=== PATIENT | female | born 1995 | race Caucasian/White ===

== ENCOUNTER 2022-10-13 05:19 | Emergency (ER) | payer OTHER, SELFPAY ==
[2022-10-13 05:26] VITALS: BP 130/79; PULSE 64; RESP 18; TEMP 36.6; O2SAT 100
--- NOTE | 2022-10-13 05:45 | CRLHL7_ITS ---
For Patients: As a result of the Century Cures Act, medical imaging exams and procedure reports are released immediately into your electronic medical record. You may view this report before your referring provider. If you have questions, please contact your health care provider. INDICATION: Periumbilical pain. TECHNIQUE: CT abdomen and pelvis acquired with 62 cc Isovue 370 IV contrast. COMPARISON: None. FINDINGS: Lower chest: Unremarkable. Liver: Unremarkable. Normal in size and attenuation. No suspicious masses. Gallbladder and bile ducts: Unremarkable. No stones or inflammation. No biliary dilatation. Pancreas: Unremarkable. No mass or inflammation. Spleen: Unremarkable. Normal in size. No masses. Adrenal glands: Unremarkable. No nodules. Kidneys: Unremarkable. No suspicious masses, stones, or hydronephrosis. GI tract: Unremarkable. Normal in caliber. No sign of mass or inflammation. Normal appendix. Vasculature: Abdominal aorta is normal in caliber. Mesenteric arteries are patent. Lymph nodes: No lymphadenopathy. Peritoneum/Abdominal Wall: Unremarkable. No sign of mass or infiltration. No free air or significant free fluid. Pelvis: Unremarkable. Bones: Unremarkable for age. IMPRESSION: Unremarkable CT of the abdomen and pelvis. No findings to explain abdominal pain. Please note that all CT scans at this facility use dose modulation, iterative reconstruction, and/or weight-based dosing when appropriate to reduce radiation dose to as low as reasonably achievable. Dictated by Norberto Torrez MD @ 10/13/2022 7:30:52 AM (Electronically Signed)
--- NOTE | 2022-10-13 05:55 | ED_ITS ---
HPI - General Adult General Chief complaint: Abdominal Pain Stated complaint: abdomen pain Time Seen by Provider: 10/13/22 05:34 Source: patient Mode of arrival: ambulatory Limitations: no limitations History of Present Illness HPI narrative: Patient reporting abdominal pain for the past 3 days, significantly worsening at 12 30 this morning which is about 5 hours prior to arrival. It is accompanied by some mild nausea but no vomiting. Pain is located slightly inferior and to the left of the umbilicus, diffuse. Achy in nature. Patient thought she might be constipated and tried using a rectal suppository. With this, she was able to have a bowel movement but there was no improvement in her pain. Pain is constant but it is also worse with movement. There is no vaginal discharge, no new sexual partners. Her last menstrual period started 8 days ago and was uncomplicated. There is no blood in her stools, no diarrhea. No trauma or injury. She denies fevers. She rates the pain is 8/10. No prior history of similar pain or symptoms. No prior history of abdominal surgeries. Denies excessive alcohol use or back pain. No hematuria or urinary symptoms. Has not tried Tylenol or ibuprofen to help with symptoms as stated above, rectal suppository was not helpful. No known ill contacts, no pertinent travel. She states that her past medical history is benign. She has prescriptions for oral contraceptives which she is no longer using and she also has a prescription for Adderall which she takes sporadically. Denies tobacco or marijuana use. No prior abdominal surgeries. ROS is notable for the abdominal symptoms and also feeling feverish though she did not measure her temperature. Otherwise negative times 12 systems. Related Data Allergies Allergy/AdvReac Type Severity Reaction Status Date / Time No Known Drug Allergies Allergy Verified 10/13/22 05:26 [facility] Social History Smoking Status: Never smoker Do you use any of these nicotine containing products: None How often do you have a drink containing alcohol: 2-3 times a week AUDIT-C Alcohol total score: 3 Non-prescribed substance use: denies use Exam Const: Vital Signs, click to edit/add: Vital Signs - 24 hr 10/13/22 05:26 Temperature 97.8 F Pulse Rate [Left P ulse Oximeter] 64 Respiratory Rate 18 Blood Pressure [Ri ght Upper Arm] 130/79 Pulse Oximetry 100 Oxygen Delivery Me thod Room Air Documenting provider has reviewed patient's vital signs: yes Common normals: no apparent distress General appearance: cooperative, comfortable and well kempt Other: Good historian. Does not appear ill. HENMT: Common normals: normocephalic, moist oral mucous membranes, oropharynx normal and dentition normal Head and scalp: normocephalic Eye: Common normals: conjunctivae normal General eye: normal appearance of both eyes Conjunctiva: conjunctiva(e) normal Neck & C-Spine: Common normals: full ROM and no lymphadenopathy Resp: Common normals: normal respiratory effort, no use of accessory muscles and clear to auscultation bilaterally Effort & inspection: able to speak in complete sentences Auscultation: clear to auscultation bilaterally Cardio: Common normals: regular rate, regular rhythm, S1 normal heart sound, S2 normal heart sound and no murmurs Rate: regular rate Rhythm: regular rhythm Heart sounds: S1 normal and S2 normal GI: Other: Abdomen appears benign, nondistended. Bowel sounds are normoactive in all 4 quadrants. There is some mild tenderness to palpation of the periumbilical areas and suprapubic regions. It localizes a little bit more to the left than the right. Somewhat to the superior region of the umbilicus as well. There is no rebound tenderness or guarding. No obvious mass. No hernias. No surgical scars. : Common normals: no CVA tenderness Bladder/kidney exam: no CVA tenderness Back & Pelvis: Common normals: no CVA tenderness Extremity: Common normals: normal to inspection, normal capillary refill and no pedal edema Neuro: Common normals: moves all extremities and no focal motor deficits Psych: Common normals: speech normal Appearance: well kempt Attitude: engaged Speech: normal speech Mood and affect: euthymic mood Insight: insight good Judgement: judgment good Skin: Common normals: no rashes or lesions noted General skin exam: no rashes or lesions noted Course Vital Signs Vital signs: Initial Vital Signs Temperature 97.8 F 10/13/22 05:26 Temperature Source Temporal Artery Scan 10/13/22 05:26 Pulse Rate 64 10/13/22 05:26 Pulse Rhythm Regular 10/13/22 05:26 Respiratory Rate 18 10/13/22 05:26 Blood Pressure 130/79 10/13/22 05:26 Blood Pressure Mean 96 10/13/22 05:26 Blood Pressure Position Semi-Fowlers 10/13/22 05:26 Pulse Oximetry 100 10/13/22 05:26 Oxygen Delivery Method Room Air 10/13/22 05:26 Vital Signs Temperature 97.8 F 10/13/22 05:26 Pulse Rate 64 10/13/22 05:26 Respiratory Rate 18 10/13/22 05:26 Blood Pressure 130/79 10/13/22 05:26 Pulse Oximetry 100 10/13/22 05:26 Oxygen Delivery Method Room Air 10/13/22 05:26 Temperature 97.8 F 10/13/22 05:26 Pulse Rate 64 10/13/22 05:26 Respiratory Rate 18 10/13/22 05:26 Blood Pressure 130/79 10/13/22 05:26 Pulse Oximetry 100 10/13/22 05:26 Oxygen Delivery Method Room Air 10/13/22 05:26 Medical Decision Making MDM Narrative Medical decision making narrative: Differential diagnosis including enteritis, pancreatitis, ovarian pathology, obstruction, atypical appendicitis, colitis, musculoskeletal etiology, upper GI pathology. Recommended basic labs, test, Toradol. CT scan of the abdomen and pelvis. Will be given normal saline, Toradol to start and re- evaluate. Update: Patient is still reporting her pain is a 7/10 but she is observed walking normally back from CT scan, she is not tachycardic. I do not think that we are missing any severe pathology. When I go in to update her on her imaging and lab findings she is resting comfortably. I do inform her of the good news of the normal CT and labs. She is somewhat reassured by this. We discussed a trial of simethicone and MiraLax to help move gas through and she would like to try this. She will be given 160 mg of simethicone p.o. x1 and 1 initial dose of MiraLax. She is given dietary recommendations to reduce gas and bloating. Alarm symptoms reviewed as indications to come back to the emergency department and she verbalizes good understanding of these. Written instructions also provided. Lab Data Lab results reviewed: Yes I reviewed the patient's lab results Lab results narrative: All normal Labs: Lab Results 10/13/22 10/13/22 Range/Units 05:55 06:37 WBC 7.29 (4.50-11.00) K/uL RBC 4.85 (4.00-5.20) m/uL Hgb 14.5 (12.0-16.0) gm/dL Hct 43.4 (33.0-51.0) % MCV 90 (80-100) fL MCH 30 (26-34) pg MCHC 33 (32-36) gm/dL RDW Coeff of Lyric 11.9 (11.5-15.5) % Plt Count 240 (140-440) K/uL Neut % (Auto) 77.2 H (42.0-72.0) % Lymph % (Auto) 15.6 L (20-44) % [place] % (Auto) 5.1 (0.0-11.0) % Eos % (Auto) 0.8 (0.0-7.0) % Baso % (Auto) 0.1 (0.0-3.0) % Neut # (Auto) 5.60 (1.7-7.0) K/uL Lymph # (Auto) 1.10 (0.90-2.90) K/uL Loup # (Auto) 0.40 (0.00-0.90) K/UL Eos # (Auto) 0.06 (0.00-0.50) K/uL Baso # (Auto) 0.01 (0.00-0.30) K/uL Sodium 138 (135-149) mmol/L Potassium 4.4 (3.6-5.1) mmol/L Chloride 101 (96-114) mmol/L Carbon Dioxide 27 (20-32) mmol/L BUN 14 (5-24) mg/dL Creatinine 0.7 (0.5-1.5) mg/dL Estimated GFR 122 ml/min Glucose 92 (60-115) mg/dL Lactate 1.2 (0.5-1.9) mmol/L Calcium 9.3 (8.4-10.6) mg/dL Total Bilirubin 0.4 (0.1-1.5) mg/dL AST 28 (12-35) U/L ALT 31 (4-35) U/L Alkaline Phosphatase 55 (40-150) U/L C-Reactive Protein < 0.5 L (0.5-1.0) mg/dL Total Protein 7.9 (6.0-8.3) g/dL Albumin 4.9 (3.3-5.0) g/dL Lipase 157 (23-300) U/L HCG, Qual Negative (Negative) Urine Color Yellow (Yellow) Urine Appearance Clear (Clear) Urine pH 6.5 (5.0-8.5) Ur Specific [place] 1.010 (1.000-1.030) Urine Protein Negative (Negative) Urine Glucose (UA) Negative (Negative) Urine Ketones Negative (Negative) Urine Blood Trace-intact A (Negative) Urine Nitrite Negative (Negative) Urine Bilirubin Negative (Negative) Urine Urobilinogen 0.2 (0.2-1.0) Ur Leukocyte Esterase Negative (Negative) Urine RBC 0-2 (0-2) Urine WBC 0-2 (0-5) Urine WBC Clumps None (None) Ur Squamous Epith Cells Few (None-Few) Urine Bacteria Few A (None) Imaging Data CT scan - abdomen: Attestation: I have reviewed the pertinent imaging results. My impression: Normal CT Radiologist's impression: IMPRESSION: Unremarkable CT of the abdomen and pelvis. No findings to explain abdominal pain. Discharge Plan Discharge Clinical Impression: Abdominal gas pain Patient Disposition: Home, Self-Care Condition: Stable Instructions: How to Avoid and Decrease Problems with Gas (DC), Gas and Bloating (ED) Additional Instructions: As we discussed, all of your blood work, urine tests and CT scan of your abdomen look great. This is reassuring. We do not see any signs of infection, inflammation or obstruction. Your reproductive organs also look great. Your given Toradol which is basically an IV version of ibuprofen and some IV fluid. You were then given some simethicone which is an anti-gas agent and a dose of MiraLax to help move things through your system. You do have a moderate amount of gas and stool on your CT scan which could be causing some cramping. My suspicion is that this is the start of a mild gastroenteritis, like a stomach flu and should move through with the help of the medications given. It is okay to continue [id number] MiraLax or bisocodyl 5 mg once daily if you are still feeling constipated. Come back to the emergency department if the pain is so severe that you cannot hold down liquids or if you start having large amounts of blood in your vomit or stool. You may resume all typical activities today. Activity Level: No Restrictions Discharge Diet: Regular Follow Up/Referrals: Pretty Dickson DO [Primary Care Provider] - Stand Alone Forms: [employer] Info Instructions
[2022-10-13] MEDS: KETOROLAC 15 MG/ML inj IVP (05:58)
[2022-10-13 06:00] LABS: Lactate* 1.2 mmol/L (0.5-1.9)
[2022-10-13 06:02] LABS: Basophils Absolute Auto 0.01 K/uL (0.00-0.30); Basophils Percent Auto 0.1 % (0.0-3.0); Eosinophils Absolute Auto 0.06 K/uL (0.00-0.50); Eosinophils Percent Auto 0.8 % (0.0-7.0); Hematocrit 43.4 % (33.0-51.0); Hemoglobin* 14.5 gm/dL (12.0-16.0); Immature Granulocytes Abs Auto 0.09 K/uL (0.00-0.30); Immature Granulocytes Pct Auto 1.2 %; Lymphocytes Percent Auto 15.6 % (20-44); Mean Corpuscular HGB Conc 33 gm/dL (32-36); Mean Corpuscular Hemoglobin 30 pg (26-34); Mean Corpuscular Volume 90 fL (80-100); Monocytes Percent Auto 5.1 % (0.0-11.0); Neutrophils Percent Auto 77.2 % (42.0-72.0); Platelet Count* 240 K/uL (140-440); RDW Coefficient of Variation % 11.9 % (11.5-15.5); Red Blood Count 4.85 m/uL (4.00-5.20); White Blood Count* 7.29 K/uL (4.50-11.00)
[2022-10-13 06:11] LABS: Slide Review Reflex No
[2022-10-13 06:16] LABS: Albumin* 4.9 g/dL (3.3-5.0); Chloride* 101 mmol/L (96-114); Sodium* 138 mmol/L (135-149)
[2022-10-13 06:17] LABS: Potassium* 4.4 mmol/L (3.6-5.1)
[2022-10-13 06:19] LABS: Bilirubin Total* 0.4 mg/dL (0.1-1.5); Creatinine* 0.7 mg/dL (0.5-1.5); Estimated Glomerular Filt Rate 122 ml/min
[2022-10-13 06:20] LABS: Alanine Aminotransferase* 31 U/L (4-35); Alkaline Phosphatase* 55 U/L (40-150); Aspartate Amino Transferase* 28 U/L (12-35); Blood Urea Nitrogen* 14 mg/dL (5-24); Calcium* 9.3 mg/dL (8.4-10.6); Carbon Dioxide* 27 mmol/L (20-32); Glucose* 92 mg/dL (60-115); Lipase* 157 U/L (23-300); Total Protein* 7.9 g/dL (6.0-8.3)
[2022-10-13 06:26] LABS: C Reactive Protein* < 0.5 mg/dL (0.5-1.0)
[2022-10-13 06:39] LABS: HCG Qualitative Serum* Negative (Negative)
[2022-10-13 06:43] LABS: Appearance Urine Clear (Clear); Bilirubin Urine Negative (Negative); Blood Urine Trace-intact (Negative); Color Urine Yellow (Yellow); Glucose Urine Negative (Negative); Ketones Urine Negative (Negative); Leukocyte Esterase Urine Negative (Negative); Nitrite Urine Negative (Negative); Protein Urine Negative (Negative); Urobilinogen Urine 0.2 (0.2-1.0); pH Urine 6.5 (5.0-8.5)
[2022-10-13 06:53] LABS: Bacteria Urine Few; RBC Urine 0-2 (0-2); Squamous Epithelial Cell Urine Few (None-Few); WBC Urine 0-2 (0-5)
== END 2022-10-13 08:26 | disposition home or self-care (01) ==
PROVIDERS: Emergency Provider Family Medicine; PCP Family Medicine
DX: R10.9 Unspecified abdominal pain (principal); R14.1 Gas pain
CPT/HCPCS: 36415; 74177; 80053; 81003; 81015; 83605; 83690; 84703; 85025; 86140; 87086; 96374; 99283; 99284; J1885; Q9967